=== PATIENT | female | born 1960 | race Caucasian/White ===

== ENCOUNTER → 2018-04-16 00:04 | Emergency (ER) | payer SELFPAY | END | disposition left against medical advice (07) | LOC: ED 00:04 | DX: R06.00 Dyspnea, unspecified (principal); Z53.21 Procedure and treatment not carried out due to patient leaving prior to being seen by health care provider ==

== ENCOUNTER 2019-02-17 00:10 | Emergency (ER) | payer MEDICARE ==
[2019-02-17] MEDS ORDERED: XANAX PO ONE (03:10)
[2019-02-17] MEDS ORDERED: PERCOCET 5/325 PO PRN (03:10)
[2019-02-17] MEDS ORDERED: BOOSTRIX IM ONE (04:11)
--- NOTE | 2019-02-17 04:14 | Emergency Department Report ---
Abscess Boil HPI - HPI Chief Complaint: Skin/Abscess/Foreign Body Stated Complaint: 4 BOILS ON VAGINAL AND THIGH AREA,SEVERE PAIN Time Seen by Provider: 02/17/19 03:09 Duration: 3 Days Location: Sacral/Pilonidal Severity: Severe History: Yes Pain, No Fever, No Purulent Drainage, No Numbness, No Foreign Body, No Previous History, No Insect Bite HPI: 58 y/o after the Prydeinig female presents to the emergency vaginal area that started . She she reports that in her groin area states that she used a dirty razor. Home Medications: Previous Rx's Medication Instructions Recorded Last Taken Type Cephalexin [Keflex] 500 mg PO Q12H #20 capsule 02/17/19 Unknown Rx Ibuprofen [Motrin 800 MG tab] 800 mg PO Q8HR PRN #30 tablet 02/17/19 Unknown Rx traMADol [Ultram 50 MG tab] 50 mg PO Q6HR PRN #12 tablet 02/17/19 Unknown Rx Allergies/Adverse Reactions: Allergies Allergy/AdvReac Type Severity Reaction Status Date / Time steroids Allergy Anaphylaxis Uncoded 02/17/19 00:15 ED Review of Systems ROS: Stated complaint: 4 BOILS ON VAGINAL AND THIGH AREA,SEVERE PAIN Other details as noted in HPI Comment: All other systems reviewed and negative Skin: lesions ED Past Medical Hx - Medications Home Medications: Home Medications Medication Instructions Recorded Confirmed Last Taken Type Cephalexin [Keflex] 500 mg PO Q12H #20 capsule 02/17/19 Unknown Rx Ibuprofen [Motrin 800 MG tab] 800 mg PO Q8HR PRN #30 tablet 02/17/19 Unknown Rx traMADol [Ultram 50 MG tab] 50 mg PO Q6HR PRN #12 tablet 02/17/19 Unknown Rx ED Abscess Boil Physical Exam - Exam General: Vital signs noted. No distress. Alert and acting appropriately. Size: 3 cm Exam: Yes Tenderness, Yes Fluctuance, Yes Normal Neurologic Exam, Yes Normal Circulation, No Surrounding Cellulites/Erythema, No Heart Murmur I & D Note - I & D Note I & D Note: DATE OF PROCEDURE: 02/17/2019. PREOPERATIVE DIAGNOSES: 1.soft tissue infection left side external labia. POSTOPERATIVE DIAGNOSES: 2. Labia soft tissue infection. Infection appeared to be contained to subcutaneous tissue and there was no evidence of necrotizing soft tissue infection including myonecrosis. OPERATION PERFORMED: Incision and drainage of ..... soft tissue abscess. Provider: Jeffrey Davis PA-C. ANESTHESIA: Local. DESCRIPTION OF PROCEDURE: The patient was prepped and draped. Seropurulent, somewhat bloody fluid was noted. The infection appeared contained to a golf ball-sized area in the subcutaneous tissues above the fascia. There was no evidence of myonecrosis, penetration of the fascia or significant extent along the fascia of the infection. We cleaned the area with Betadine and then packed the wound .......... Dry dressings were applied. The patient appeared to tolerate the procedure well. ED Course Vital Signs 02/17/19 00:15 Temperature 98.4 F Pulse Rate 101 H Respiratory 18 Rate Blood Pressure 152/80 O2 Sat by Pulse 98 Oximetry Critical care attestation.: If time is entered above; I have spent that time in minutes in the direct care of this critically ill patient, excluding procedure time. ED Disposition Clinical Impression: Abscess of left genital labia Disposition: DC-01 TO HOME OR SELFCARE Is pt being admited?: No Does the pt Need Aspirin: No Condition: Stable Additional Instructions: Complete antibiotics as prescribed. Pain medication as needed. Follow-up with your primary care provider if his symptoms persist or gets worse. Prescriptions: Cephalexin [Keflex] 500 mg PO Q12H #20 capsule Ibuprofen [Motrin 800 MG tab] 800 mg PO Q8HR PRN #30 tablet PRN Reason: Pain , Severe (7-10) traMADol [Ultram 50 MG tab] 50 mg PO Q6HR PRN #12 tablet PRN Reason: Pain Referrals: SCAR VALERO MD [Primary Care Provider] - 3-5 Days
[2019-02-17 07:59] VITALS: BP 126/78
== END 2019-02-17 05:30 | disposition home or self-care (01) ==
LOC: ED 00:10
DX: N76.4 Abscess of vulva (principal); Z88.8 Allergy status to other drugs, medicaments and biological substances
CPT/HCPCS: 90471; 90715; 99282